=== PATIENT | female | born 1985 | race Caucasian/White ===

== ENCOUNTER 2021-06-08 16:51 | Emergency (ER) | payer OTHER, SELFPAY ==
--- NOTE | ~2021-06-08 | XR_ITS ---
EXAMINATION: XR chest 2V DATE: 06/08/2021 17:23 INDICATION: Left-sided chest pain TECHNIQUE: PA and lateral views of the chest were obtained. COMPARISON: None FINDINGS: The lungs are clear with no focal airspace opacities, pulmonary edema, pleural effusion or pneumothor ax. The cardiomediastinal silhouette is normal. Visualized bones and soft tissues are unremarkable. IMPRESSION: 1. No acute cardiopulmonary disease. Reviewed, dictated and finalized at location B.
--- NOTE | 2021-06-08 17:00 | ECG_ITS ---
Measurements Intervals [place] Rate: 65 P: 43 IA: 183 QRS: 38 QRSD: 93 T: 23 QT: 408 QTc: 426 Interpretive Statements SINUS RHYTHM POSSIBLE RIGHT VENTRICULAR CONDUCTION DELAY [RSR (QR) IN V1/V2] NONSPECIFIC T-WAVE ABNORMALITY NO PREVIOUS ECG AVAILABLE FOR COMPARISON Electronically Signed On 06-08-2021 19:02:02 CDT by Gloria Mathew M.D.
[2021-06-08 17:06] VITALS: BP 122/82; PULSE 78; RESP 18; TEMP 36.6; O2SAT 100
[2021-06-08 17:11] VITALS: O2SAT 100
[2021-06-08 17:32] LABS: Basophils Percent Auto 0.5 % (0.2-1.2); Eosinophils Absolute Auto 0.1 K/mm3 (0-0.3); Eosinophils Percent Auto 1.3 % (0-4.4); Hematocrit 41.3 % (37.0-47.0); Hemoglobin 13.7 g/dL (12.0-15.0); Immature Granulocyte Absolute 0.01 K/mm3 (0.00-0.031); Immature Granulocyte Percent A 0.2 % (0-0.5); Lymphocytes Percent Auto 31.9 % (18.3-44.2); Mean Corpuscular HGB Conc 33.2 g/dl (32-36); Mean Corpuscular Hemoglobin 29.8 pg (26-34); Mean Corpuscular Volume 89.8 fl (80-100); Mean Platelet Volume 10.4 fl (7.4-10.4); Monocytes Absolute Auto 0.6 K/mm3 (0.1-0.6); Monocytes Percent Auto 9.1 % (2.6-8.5); Neutrophils Absolute Auto 3.6 K/mm3 (1.3-6.7); Platelet Count Result 157 k/mm3 (150-375); Red Cell Distribution Width 12.2 % (11.5-14.5); White Blood Count 6.3 K/mm3 (4.5-10.0)
[2021-06-08] MEDS: KETOROLAC 30 MG/ML VIAL (*BKC) IV PUSH (17:34)
--- NOTE | 2021-06-08 17:38 | ED.CHESTPAIN ---
HPI - Chest Pain General Chief Complaint: Chest Pain Stated Complaint: chest pain Time Seen by Provider: 06/08/21 16:57 History of Present Illness HPI narrative: Patient is a 35-year-old female who presents ER with left-sided chest pain. Began this morning while driving to work. Initially started in her left back and began radiating around the chest. Worse with deep breaths. No runny nose or sore throat or productive cough. No hemoptysis. No lower extremity swelling or calf cramping. No recent surgery or long distance travel. No history of PE. She is not on any hormones. No exertional chest pain or shortness of breath. Tried taking Tylenol without provement. Symptoms are better if she lays back and worse if she lays forward. Related Data Home Medications Medication Instructions Recorded Confirmed fluoxetine 20 mg PO DAILY 06/08/21 06/08/21 Allergies Allergy/AdvReac Type Severity Reaction Status Date / Time No Known Allergies Allergy Verified 06/08/21 17:10 Review of Systems Review of Systems: All systems reviewed & are unremarkable except as noted in HPI and below Constitutional: Constitutional: Denies chills, Denies fever(s) and Denies weakness ENT: Denies nasal congestion and Denies sore throat Cardiovascular: Cardiovascular: Reports chest pain, Denies rapid heart rate and Reports radiating jaw, neck or arm pain Respiratory: Respiratory: Denies cough, Denies dyspnea and Denies wheezing Gastrointestinal: Gastrointestinal: Denies abdominal pain, Denies nausea and Denies vomiting Musculoskeletal: Musculoskeletal: Reports back pain and Denies muscle cramps PMFSH Past Medical History Medical History (Updated 06/08/21 @ 18:59 by Cleve Barrera MD) Healthy female adult Surgical History Surgical History (Updated 06/08/21 @ 17:40 by Cleve Barrera MD) No pertinent past surgical history Family History Family History (Updated 09/30/15 @ 23:19 by DOCTOR UNKNOWN) Father Family history of diabetes mellitus in first degree relative Family history of coronary artery disease Social History Social History Smoking status: Never smoker Second hand tobacco smoke exposure: No Alcohol intake: current Exam Narrative: GENERAL: Well-appearing, well-nourished, and in no acute distress. HEAD: Normocephalic, atraumatic. CHEST: Clear to auscultation. No respiratory distress. HEART: Regular rate and rhythm. Normal peripheral pulses. ABDOMEN: Soft, nontender, nondistended. Back: No reproducible midline tenderness of the thoracic or lumbar spine. Mild discomfort in the paraspinal musculature on the left side between the spine and the scapula. No palpable spasm. EXTREMITIES: Normal range of motion. No edema. SKIN: Warm, dry, no rash. NEURO: Alert and oriented x3. PSYCH: Normal mood and affect. Course Course Emergency Course: Discomfort resolved with Toradol. Discharge home. Vital Signs Vital signs: Vital Signs Temperature 97.8 F 06/08/21 17:06 Pulse Rate 78 06/08/21 17:06 Respiratory Rate 18 06/08/21 17:06 Blood Pressure 122/82 06/08/21 17:06 Pulse Oximetry 100 06/08/21 17:06 Temperature 97.8 F 06/08/21 17:06 Pulse Rate 66 06/08/21 18:49 Respiratory Rate 18 06/08/21 18:49 Blood Pressure 105/71 06/08/21 18:49 Pulse Oximetry 100 06/08/21 18:49 MDM - Chest Pain Lab Data Result diagrams: 06/08/21 17:28 06/08/21 17:28 Labs: Lab Results 06/08/21 06/08/21 06/08/21 Range/Units 17:28 17:28 17:28 WBC 6.3 (4.5-10.0) K/mm3 RBC 4.60 (4.2-5.4) M/mm3 Hgb 13.7 (12.0-15.0) g/dL Hct 41.3 (37.0-47.0) % MCV 89.8 (80-100) fl MCH 29.8 (26-34) pg MCHC 33.2 (32-36) g/dl RDW 12.2 (11.5-14.5) % Plt Count 157 (150-375) k/mm3 MPV 10.4 (7.4-10.4) fl Immature Gran % (Auto) 0.2 (0-0.5) % Neut % (Auto) 57.0 (45.5-73.1) % Lymph % (Auto) 31.9 (18.3-44.2) % [place]
[2021-06-08 17:42] LABS: INR 0.9; Prothrombin Time 11.8 Seconds (11.1-14.7)
[2021-06-08 17:43] LABS: Anion Gap 4 mmol/L (8-16); Blood Urea Nitrogen 13 mg/dL (7-17); Calcium 8.4 mg/dL (8.4-10.2); Carbon Dioxide 30 mmol/L (22-30); Chloride 103 mmol/L (98-107); Estimated CRCL calculation 78 ml/min; Estimated Glomerular Filt Rate > 60; Glucose 94 mg/dL (65-110); Partial Thromboplastin Time 30.3 SECONDS (22.3-36.8); Potassium 3.9 mmol/L (3.4-5.0); Sodium 137 mmol/L (137-145)
[2021-06-08 17:46] LABS: D Dimer 0.35 ug/mL (<0.48)
[2021-06-08 17:58] LABS: Troponin I < 0.012 ng/mL (0.000-0.034)
[2021-06-08 18:49] VITALS: BP 105/71; PULSE 66; RESP 18; O2SAT 100
== END 2021-06-08 19:10 | disposition home or self-care (01) ==
PROVIDERS: Emergency Provider Emergency Medicine; PCP Nurse Practitioner Family
DX: R07.89 Other chest pain (principal); R94.31 Abnormal electrocardiogram [ECG] [EKG]
CPT/HCPCS: 36415; 71046; 80048; 84484; 85025; 85380; 85610; 85730; 93005; 96374; 99284; J1885

== ENCOUNTER 2024-12-28 08:28 | Outpatient (CLI) | payer OTHER, SELFPAY ==
--- NOTE | ~2024-12-28 | MM_ITS ---
EXAMINATION: MM screening amara BI w asher HISTORY: Screening TECHNIQUE: Craniocaudal and mediolateral oblique 3-D tomosynthesis images were obtained and synthetic 2-D images were generated. CAD analysis was submitted and interpreted. COMPARISON: No prior mammogram is available for comparison at this institution. BREAST PARENCHYMAL COMPOSITION: Not dense: There are scattered areas of fibroglandular density. FINDINGS: There is no evidence of suspicious mass, calcification, or architectural distortion to suggest malignancy in either breast. There has been no suspicious interval change. IMPRESSION: 1. No mammographic evidence of malignancy. 2. Recommend routine screening mammography in one year. BI-RADS Category 1: Negative Reviewed, dictated and finalized at location B.
--- OUTSIDE RECORDS SUMMARY | 2024-12-28 08:57 | XMS_ITS | Clinical Summary ---
Author Organization [facility] Address [address] [place] [address] Care Team Providers Care Protective Signal Repairer Name Role Phone Gay Dc NP Primary Care Provider [phone] Allergies No known active allergies Medications Vitamin D3 125 mcg Tab Take 1 tablet (125 mcg total) by mouth daily. 3 Active Iron Glycinate 29 MG Cap Take 1 capsule by mouth daily. 4 Active Menatetrenone (VITAMIN K2) 100 MCG Tab 4 Active Berberine Chloride (BERBERINE HCI OR) Take 400 mg by mouth daily. 4 Active Magnesium Glycinate 100 MG Cap Take 100 mg by mouth daily. 4 Active PROGESTERONE OR Take 50 mg by mouth daily. 4 Active testosterone Cream Apply topically daily. 4 Active venlafaxine XR (EFFEXOR-XR) 75 MG 24 hr capsuleIndicati ons:Anxiety and depression Take 1 capsule (75 mg total) by mouth daily. Switch to 30 day supply with 5 refills if insurance will not cover 90 day supply. 90 capsule 5 Active Active Problems Problem Noted Date Diagnosed Date Overweight (BMI 25.0-29.9) 06/13/2023 Attention deficit hyperactiv ity disorder (ADHD), unspecified ADHD type 06/13/2023 Anxiety and depression 06/13/2023 Overview (01/02/2024): Doing well with use of venlafaxine 75 mg daily. Denies SI/HI. Assessment & Plan (01/02/2024 8:15 AM CDT): Chronic condition. Controlled. No med changes at this time. Neutropenia, unspecified type 06/13/2023 Hormone replacement therapy 06/13/2023 Leukopenia 11/22/2022 Vitamin D deficiency 10/10/2022 Immunizations Immunization Administration Dates Next Due Influenza (Generic) 11/26/2020,12/28/2013 Influenza Adult (Generic) 02/17/2020,01/23/2015 Family History Medical History Relation Comments Alcohol Abuse Father Depression Father Heart Disease Father Mental Health Father Treats with a ps ychiatrist for panic and depression Vision loss Father macular degenera tion Arthritis Maternal Grandmother Cancer Maternal Grandmother Breast canc er - once in each breast on separate occurrences Cancer Paternal Aunt Lung Cancer Cancer Paternal Grandfather Brain cance r COPD Paternal Grandmother Heavy smoke r Depression Paternal Grandmother Cancer Paternal Uncle 1 Lung Cancer Cancer Paternal Uncle 2 Lung Cancer Relation Status Comments Father Maternal Grandmother Paternal Aunt Paternal Grandfather Paternal Grandmother Paternal Uncle 1 Paternal Uncle 2 Social History Tobacco Use Types Packs/Day Years Used Date Smoking Tobacco: Never Passive Smoke Exposure: Never Smokeless Tobacco: Never Tobacco Cessation:Counseling Given: No Alcohol Use Standard Drinks/Week Comments Yes 3.3 (1 standard drin k = 0.6 oz pure alcohol) Drinks are not weekly; social. 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 [employer] Gender Identity Not on file Sexual Orientation Not on file Last Filed Vital Signs Vital Sign Reading Time Taken Comments Blood Pressure 94/64 01/02/2024 7:53 AM CDT Pulse 63 01/02/2024 7:53 AM CDT Temperature 35.9 C (96.6 F) 01/02/2024 7:53 AM CDT Respiratory Rate 16 01/02/2024 7:53 AM CDT Oxygen Saturation 97% 01/02/2024 7:53 AM CDT Inhaled Oxygen Concentration - - Weight 74.4 kg (164 lb) 01/02/2024 7:53 AM CDT Height 160 cm (5' 3) 01/02/2024 7:53 AM CDT Body Mass Index 29.05 01/02/2024 7:53 AM CDT Plan of Treatment Upcoming Encounters Date Type Department Care Team (Late st Contact Info) Description 01/04/2025 8:00 AM MANIFEST/ORDER ORGANIZER PRINT [employer] Office Visit [facility] Family [facility] - [place] [address] [place] [address] Gay Dc, BEAUTY CULTURE TEACHER [address] [place], [place] [id number] Health Maintenance Due Date Last Done Comments Hepatitis C 2002 DTaP, Tdap and Td Vaccines (1 - Tdap) 07/26/2003 Hepatitis B Vaccines (1 of 3 - 19+ 3-dose series) 07/26/2003 HPV Vaccines (1 - 3-dose SCDM series) 07/26/2011 PHQ-2 (Physician [place]) 03/04/2024 06/13/2023 Annual Physical 06/12/2024 06/13/2023 Mammogram Screening 2024 COVID-19 Vaccine ( - 2024- season) 2024 01/06/2021, 11/26/2020 Influenza Adult (#1) 2024 11/26/2020, 02/17/2020, 01/23/2015, Additional history exists Cervical Cancer Screening Pap Smear (Age 30 to 64) Every 3 Years 03/09/2025 03/09/2022 Cervical Cancer Screening Pap with HPV Testing (Age 30 to 64) Every 5 Years 03/09/2027 03/09/2022 Cervical Cancer Screening with HPV 03/09/2027 Hepatitis A Vaccines Aged Out No long er eligible based on patient's age to complete this topic Meningococcal B Vaccine Aged Out No l onger eligible based on patient's age to complete this topic Meningococcal Vaccine Aged Out No basilio angel eligible based on patient's age to complete this topic Pneumococcal Vaccine: Pediatrics (0 to 5 Years) and At-Risk Patients (6 to 49 Years) Aged Out No longer eligible based on patient's age to complete this topic RSV Immunizations Under 20 Months Aged Out No longer eligible based on patient's age to complete this topic Procedures Procedure Name Priority Date/Time Associated Diagnosis Comments OUTSIDE CYTOPATH CERV/VAG IN TERPRET (PAP) 03/09/2022 from Last 3 Months or Most Recently Relevant to Health Maintenance Results * PAP SMEAR WITH HPV (03/09/2022) 03/09/2022 [facility] Scanned SCANNING Final Resu lt from Last 3 Months or Most Recently Relevant to Health Maintenance Insurance [facility] Care Teams Protective Signal Repairer Relationship Specialty Start Date End Date Gay Dc NP [address] [place] [address] PCP - General NURSE PRACTITIONER 06/13/23
--- OUTSIDE RECORDS SUMMARY | 2024-12-28 08:57 | XMS_ITS | Clinical Summary ---
Author Organization [facility] Address [address] [place] [address] Care Team Providers Care Operator Maintainer Name Role Phone Summer Purdy TELEGRAPHIC TYPEWRITER OPERATOR CHIEF Primary Care Provider + Allergies No known active allergies Medications vitamin B comp and C no.3 21-31-12-5-300 mg capsule Take by mouth daily Active calcium-mag oxide-vitamin D3 250-125-100 mg-mg-unit capsule Take by mouth Active magnesium glycinate 100 mg magnesium capsule Take 100 mg by mouth daily 06/06/2023 Active vitamin K2, MK-4, 100 mcg tablet 06/03/2023 Active ESTRADIOL-PROGE STERONE ORAL Take 50 mg by mouth daily 06/01/2023 Active cholecalciferol (VITAMIN D-3) 5,000 unit tablet Take 125 mcg by mouth daily 12/02/2022 Active venlafaxine XR (EFFEXOR-XR) 75 mg 24 hr capsule TAKE 1 CAPSULE BY MOUTH DAILY. SWITH TO 30 DAY SUPPLY 06/01/2024 Active Active Problems Problem Noted Date Diagnosed Date Leukopenia 01/28/2023 Surgical History Surgery Date Site/Laterality Comments SECTION two Medical History Medical History Date Comments Anxiety Depression Adhd Family History Medical History Relation Name Comments Brain cancer Maternal Grandfather Breast cancer Maternal Grandmother Colon cancer Neg Hx Ovarian cancer Neg Hx Stroke Neg Hx Uterine cancer Neg Hx Relation Name Status Comments Maternal Grandfather Maternal Grandmother Social History Tobacco Use Types Packs/Day Years Used Date Smoking Tobacco: Never Smokeless Tobacco: Never Alcohol Use Standard Drinks/Week Comments Yes 0 (1 standard drink = 0.6 oz pur e alcohol) Humiliation, Afraid, Rape, and Kick questionnair e Answer Date Recorded Within the last year, have y ou been afraid of your partner or ex-partner? No 12/14/2019 Within the last year, have y ou been humiliated or emotionally abused in other ways by your partner or ex-partner? No Within the last year, have y ou been kicked, hit, slapped, or otherwise physically hurt by your partner or ex-partner? No 12/14/2019 Within the last year, have y ou been raped or forced to have any kind of sexual activity by your partner or ex-partner? No 12/14/2019 Social Connection and Isolation Panel Answer Date Recorded Frequency of Communication with Friends and Fami ly Not on file 12/14/2019 Frequency of Social Gatherings with Friends and Family Not on file 12/14/2019 Attends Christian Services Not on file 12/13 Active Member of Clubs or Organizations Not on f ile 12/14/2019 Attends Club or Organization Meetings Not on austin e 12/14/2019 Are you , , di vorced, , never , or living with a partner? 12/14/2019 AUDIT-C Answer Date Recorded Frequency of Alcohol Consumption Not on file 02/06/2023 Q2: How many drinks containi ng alcohol do you have on a typical day when you are drinking? 1 or 2 02/06/2023 Q3: How often do you have si x or more drinks on one occasion? Weekly 02/06/2023 Comments No Sex and Gender Information Value Date Recorded Sex Assigned at Not on file Legal Sex Female 8:58 AM CDT Gender Identity Not on file Sexual Orientation Not on file Obstetrics History Para Term AB IAB SAB Ectopic Multiple Livin g Live Births 3 2 2 1 1 2 2 Date Outcome GA Total Labor Labor/2nd/3rd Weight Sex Type Anes PTL Ibeth A1 A5 Name Clin 2010 Term 40w5 d 4.139 kg (9 lb 2 oz) M CS-LT ranv Living 2013 SAB 2014 Term 39w0 d 3.402 kg (7 lb 8 oz) F CS-LT ranv Living Last Filed Vital Signs Vital Sign Reading Time Taken Comments Blood Pressure 104/68 06/19/2024 8:28 AM CDT Pulse 74 06/19/2024 8:28 AM CDT Temperature 36.6 C (97.8 F) 05/08/2023 11:13 AM BUSINESS INVESTOR Respiratory Rate 18 05/08/2023 11:13 AM BUSINESS INVESTOR Oxygen Saturation 98% 06/19/2024 8:28 AM CDT Inhaled Oxygen Concentration - - Weight 72.2 kg (159 lb 3.2 oz) 06/19/2024 8:28 A M CDT Height 158.8 cm (5' 2.5) 06/19/2024 8:28 AM CDT Body Mass Index 28.65 06/19/2024 8:28 AM CDT Plan of Treatment Health Maintenance Due Date Last Done Comments Breast Cancer Screening-Mammogram 1985 Depression Screening 1984 Hepatitis C Screening 1984 DTaP/Tdap/Td Vaccine (1 - Tdap) 07/26/1995 Varicella Vaccines (1 of 2 - 13+ 2-dose series) 1997 Hepatitis B Screening 2002 HPV Vaccines (1 - 3-dose SCDM series) 07/26/2011 Cervical Cancer Screening 03/09/2023 03/09/2022 Covid-19 Vaccine ( - season) 2024 01/06/2021, 11/26/2020 Influenza Vaccine (#1) 2024 , 02/17/2020, 01/23/2015, Additional history exists Regular Well Visit/Exam 18-64 06/19/2025 06/19/2024, 03/12/2023, 03/09/2022, Additional history exists Pneumococcal vaccine <65 Aged Out No longer eligible based on patient's age to complete this topic Procedures Procedure Name Priority Date/Time Associated Diagnosis Comments PAP AND HIGH RISK HPV, REFLEX TO GENOTYPING Routine 03/09/2022 10:29 AM BUSINESS INVESTOR Screening for malignant neoplasm of the cervix Screening for HPV (human papillomavirus) from Last 3 Months or Most Recently Relevant to Health Maintenance Results * Pap and High Risk HPV, reflex to Genotyping (03/09/2022 10:29 AM BUSINESS INVESTOR) Thin prep (Pap test) 03/09/2022 10:29 AM BUSINESS INVESTOR 03/14/2022 10:50 AM BUSINESS INVESTOR Narrative PATHOLOGY [facility] - 03/17/2022 12:12 PM BUSINESS INVESTOR EPIC results best viewed via link to PDF [address] [address] Tele: Imani Arizmendi MD - Creative Technologist CYTOLOGY REPORT Note to Patients: This report may contain a detailed description of human tissue sent by a health care provider to the laboratory for pathologic evaluation. The content of this report is essential for diagnosis and may provide important critical findings. This information may be unfamiliar to patients to review without a medical professional present. It is advised that the patient review this report in the presence of a health care provider who can answer questions and explain the details. Patient Name: MAY MEDEROS Address: [address] [place] [address] Gender: F : 1985 (Age: 36) Service: Location: Hospital #: [id number] Patient Type: [facility] SPECIMEN Taken: 03/09/2022 Reported: 03/17/2022 Physician(s): Tami Crawford MD FINAL DIAGNOSIS: Specimen Type: - ThinPrep Pap and HPV w/ reflex Genotyping Statement of Specimen Adequacy: Source: Cervical/Endocervical - Satisfactory for interpretation - Endocervical /Transformation Zone component present - Case screened using computer assisted imaging technology and manually re- screened by a energy control officer. General Categorization: - Negative for intraepithelial lesion or malignancy cad/03/17/2022 12:12Lori Corea M.S., JAGDISH (ASCP) Report Reviewed and Electronically Signed By Lori Corea M.S., JAGDISH (ASCP)Clerical Data Follow A; [id number] DIAGNOSIS COMMENT: Ancillary Testing: HPV High Risk Group (16, 18, 31, 33, 35, 39, 45, 51, 52, 56, 58, 59, 66 and 68) - Not Detected Reference Range: Not Detected This test was performed using the [employer] CLINICAL DIAGNOSIS AND HISTORY Last Menstrual Period: 02/20/22 REPORT IMAGES AND/OR SCANNED DOCUMENTS ONLY VIEWABLE IN PDF FORMAT The Pap test is a screening test used to aid in the detection of cervical cancer and its precursors. It should not be the sole means by which malignant and premalignant lesions are diagnosed. Both false negative and false positive results may occur. It also has poor sensitivity for the detection of endometrial lesions and should not be used to evaluate suspected endometrial abnormalities. For these reasons it is most important to obtain Pap tests at regular intervals, as recommended by your physician or nurse practitioner. us Tami Crawford MD LAB CYTOLOGY ORDERABLES Steph raines Result PATHOLOGY [facility] Laboratory Receiving [address] [place] [address] from Last 3 Months or Most Recently Relevant to Health Maintenance Insurance [facility] CHOICE PLUS [facility] CHOICE PLUS [facility] CHOICE PLUS [place] [id number] Care Teams Operator Maintainer Relationship Specialty Start Date End Date Summer Purdy NP PCP - General Nurse Practitioner 02/06/23
== END 2024-12-28 08:29 | disposition home or self-care (01) ==
LOC: ANHFOHIMG 08:33
PROVIDERS: PCP Nurse Practitioner; Visit Provider Nurse Practitioner
DX: Z12.31 Encounter for screening mammogram for malignant neoplasm of breast (principal)
CPT/HCPCS: 77063; 77067